=== PATIENT | female | born 1960 | race African-American/Black ===

== ENCOUNTER 2016-12-21 08:45 | Inpatient (IN) | payer OTHER ==
[2016-12-21 08:54] VITALS: BMI 34.4
--- NOTE | 2016-12-21 09:15 | PDOC ---
History of Present Illness <Shan Fontana - Last Filed: 12/21/16 10:33> - General History Source: Patient Exam Limitations: No Limitations - History of Present Illness Initial Comments: 12/21/16 10:46 The patient is a 56 year old female with a significant past medical history of HTN, who presents to the ER with left facial droop since 3AM. Patient states she was in her usual state of health when she fell asleep at midnight last night. The noticed that the patient had mumbled speech at 3AM last night when she sat up to cough. initially attributed the symptoms to tiredness. Patient fell back asleep and woke up at 6 AM without any notice of change in her speech. Patient reports feeling tired but denies difficulty ambulating or weakness in extremities. states he noticed patient with left facial droop at 8AM this morning. Patient arrived to the ER at 9AM. Patient states she did not take her daily medication this morning Denies face numbness or weakness in extremities Denies history of stroke Denies taking blood thinners PCP: Dr. Maynard <Luciana Roach - Last Filed: 12/21/16 11:52> - General Chief Complaint: CVA/TIA Stated Complaint: SLURRED SPEECH, FACIAL DROOPING Time Seen by Provider: 12/21/16 09:01 NIH Stroke Scale - Last Known Well Date/Time & Onset Date Last Known Well: 12/21/16 Time Last Known Well: 00:00 - Initial Evaluation Level of consciousness: Alert Ask patient the month and their age: Answers both correctly Ask patient to open & close eyes; make fist and let go: Obeys both correctly Best gaze (horizontal eye movement): Normal Visual field testing: No visual field loss Facial paresis (Show teeth/raise eyebrows/close eyes tight): Minor paralysis ( flattened nasolabial fold, asymmetry on smiling) Motor Function: Left Arm: Normal Motor Function: Right Arm: Normal (extends arm 90 (or 45) degrees for 10 seconds without drift Motor Function: Left Leg: Drift Motor Function: Right Leg: Normal (extends leg 30 degrees for 5 seconds without drift) Limb Ataxia: No ataxia Sensory(Use pinprick test arms,legs,trunk,face/side to side): Normal Best language (Describe picture, name items, read sentences): No Aphasia Dysarthria (read several words): Mild to moderate slurring of words Extinction and Inattention: No abnormality - Total Score NIH Stroke Scale Score: 3 <Shan Fontana - Last Filed: 12/21/16 10:33> tPA Exclusion checklist 3-4.5h - Thrombolytic Therapy Candidate Is patient eligible for thrombolytic therapy: No - Ineligibility reason(s) Reasons No tPA given: Outside of window - delayed arrival <Shan Fontana - Last Filed: 12/21/16 10:33> Past History - Past Medical History Anemia: Yes Asthma: No Cancer: No Cardiac Disorders: No CVA: No COPD: No CHF: No Dementia: No Diabetes: No GI Disorders: No Disorders: No HTN: Yes Hypercholesterolemia: No Liver Disease: No Seizures: No Thyroid Disease: No - Surgical History Abdominal Surgery: No Appendectomy: No Cardiac Surgery: No Cholecystectomy: Yes Lung Surgery: No Neurologic Surgery: No Orthopedic Surgery: No - Psycho/Social/Smoking Cessation Hx Anxiety: No Suicidal Ideation: No Smoking History: Never smoked Have you smoked in the past 12 months: No Information on smoking cessation initiated: No Hx Alcohol Use: No Drug/Substance Use Hx: No Substance Use Type: None Hx Substance Use Treatment: No <Shan Fontana - Last Filed: 12/21/16 10:33> <Luciana Roach - Last Filed: 12/21/16 11:52> - Past Medical History Allergies/Adverse Reactions: Allergies Allergy/AdvReac Type Severity Reaction Status Date / Time No Known Drug Allergies Allergy Verified 12/21/16 08:49 SEASONAL Allergy Uncoded 12/21/16 08:49 Home Medications: Ambulatory Orders Enalapril Maleate [Vasotec -] 20 mg PO DAILY 12/06/13 Metoprolol Succinate [Toprol Xl] 50 mg PO BID 12/21/16 Review of Systems - Review of Systems Constitutional: No: Chills, Fever HEENTM: No: Recent change in vision Respiratory: No: Cough, Shortness of Breath Cardiac (ROS): No: Chest Pain ABD/GI: No: Nausea, Vomiting Neurological: Yes: See HPI. No: Headache All Other Systems: Reviewed and Negative <Shan Fontana - Last Filed: 12/21/16 10:33> - Review of Systems Able to Perform ROS?: Yes Comments:: 12/21/16 10:57 CONSTITUTIONAL: Absent: fever, no chills, no fatigue EYES: Absent: visual changes ENT: Absent: ear pain, no sore throat CARDIOVASCULAR: Absent: chest pain, no palpitations RESPIRATORY: Absent: cough, no SOB GI: Absent: abdominal pain, no nausea, no vomiting, no constipation, no diarrhea GENITOURINARY: Absent: dysuria, no frequency, no hematuria MUSCULOSKELETAL: Absent: back pain, no arthralgia, no myalgia SKIN: Absent: rash NEURO: Present: Left facial droop Absent: headache <UtsLuciana - Last Filed: 12/21/16 11:52> *Physical Exam - Vital Signs Last Vital Signs Temp Pulse Resp BP Pulse Ox 98.5 F 65 18 173/100 97 12/21/16 08:49 12/21/16 08:49 12/21/16 08:49 12/21/16 08:49 12/21/16 08:49 <Shan Fontana - Last Filed: 12/21/16 10:33> - Vital Signs Last Vital Signs Temp Pulse Resp BP Pulse Ox 98.5 F 54 L 16 157/77 98 12/21/16 08:49 12/21/16 10:02 12/21/16 10:02 12/21/16 10:02 12/21/16 10:02 - Physical Exam Comments: 12/21/16 10:59 General: Patient is alert and in no acute distress. Speech is clear and appropriate. Head: Atraumatic and nontender. HEENT: Pupils are equal round and reactive to light, extraocular movements are intact. The tympanic membranes are clear, no hemotympanum. No facial deformity/ tenderness, no septal hematoma. The oropharynx is clear. Neck: The trachea is midline, there is no stridor. There is no midline cervical spine tenderness, full range of motion of neck. Chest: Nontender, no ecchymosis or abrasions. Heart: S1-S2, regular rate and rhythm. No murmurs. Lungs: Clear to auscultation bilaterally. Symmetric chest rise. Abdomen: Soft/nontender/nondistended. Bowel sounds are normal. There is no abdominal or flank ecchymosis. Back/Pelvis: There is no midline spine tenderness or step-off. Pelvis is stable and nontender. Extremities: There is no extremity deformity or joint swelling. No focal bony tenderness throughout. 2+ distal pulses throughout. Neuro: Left facial droop with sparing of the forehead. Alert and oriented x3. Cranial nerves II through XII are intact. 5 out of 5 motor strength x4 extremities. [id number] is intact. No pronator drift. Gait is stable. Skin: No abrasions/hematomas/lacerations. Psych: Affect is appropriate. <CleopatraaniyaLuciana - Last Filed: 12/21/16 11:52> Heart Score/ECG Review #1 ECG reviewed & interpreted by me at: 09:01 General ECG Interpretation: Sinus Rhythm, Normal Rate (56), Normal Intervals ( LVH, QTC 413), No acute ischemic changes <Shan Fontana - Last Filed: 12/21/16 10:33> ED Treatment Course - LABORATORY CBC & Chemistry Diagram: 12/21/16 09:19 12/21/16 09:19 - RADIOLOGY Radiology Studies Ordered: Category Date Time Status HEAD CT (STROKE) [CT] Stat CT Scan 12/21/16 09:10 Ordered CHEST X-RAY PORTABLE* [RAD] Stat Radiology 12/21/16 09:10 Ordered <Shan Fontana - Last Filed: 12/21/16 10:33> - LABORATORY CBC & Chemistry Diagram: 12/21/16 09:19 12/21/16 09:19 - ADDITIONAL ORDERS Additional order review: Laboratory Results 12/21/16 12/21/16 12/21/16 09:19 09:19 09:19 INR 1.12 Sodium 142 Potassium 3.8 Chloride 106 Carbon Dioxide 28 Anion Gap 8 BUN 11 Creatinine 1.1 H D Creat Clearance w eGFR 51.20 Random Glucose 122 H D Calcium 8.5 Total Bilirubin 0.5 AST 19 ALT 21 Alkaline Phosphatase 87 Creatine Kinase 269 H CK-MB (CK-2) 1.637 Troponin I < 0.02 Total Protein 7.0 Albumin 3.7 Triglycerides 77 Cholesterol 200 Total LDL Cholesterol 126 H HDL Cholesterol 64 H Blood Type O POSITIVE Antibody Screen Negative 12/21/16 09:19 RBC 4.60 MCV 85.8 MCHC 33.5 RDW 14.7 MPV 9.4 Neutrophils % 67.4 Lymphocytes % 24.7 Monocytes % 6.0 Eosinophils % 1.7 Basophils % 0.2 - RADIOLOGY Radiograph Interpretation: 12/21/16 11:[address] impression reported by Dr. Win Lewis: No evidence of acute intracranial hemorrhage, edema, midline shift, mass effect, or skull fracture. There is no CT evidence of acute territorial infarction <Luciana Roach - Last Filed: 12/21/16 11:52> Medical Decision Making - Critical Care Time Total Critical Care Time (minutes): 35 Critical Care Statement: The care of this patient involved high complexity decision making to prevent further life threatening deterioration of the patient 's condition and/or to evalute & treat vital organ system(s) failure or risk of failure. - Medical Decision Making 12/21/16 09:33 A portion of this note was documented by scribe services under my direction. I have reviewed the details of the note, within reason, and agree with the documentation with the following case summary and management plan written by me. 56-year-old female with history of hypertension and borderline high cholesterol presents brought in by this morning for left-sided facial weakness and slurred speech. Patient went to bed last night around midnight, which is the last known well time. Around 3 AM, patient awoke around 6 AM but did not notice any deficits or have any complaints, and at 8 AM the noticed that her left face was weak so they present for evaluation at 9 AM. No headache, no vision change, never noticed any arm or leg weakness or chest pain. Exam as noted, left facial droop but 5 out of 5 strength in the extremities, question subtle left leg drift. 56-year-old female with presentation most concerning for small ischemic stroke, last known well was about 9 hours prior to presentation. She is out of the window for acute intervention. Stroke protocol initiated Neurology consult Admission 12/21/16 10:29 labs are within normal limits, troponin negative, creatinine 1.1. CT shows no acute pathology. Will and gradually with aspirin, control blood pressure with her home meds of metoprolol/enalapril, neurology consulted. Will proceed with admission to stroke unit. 12/21/16 10:34 Accepted for inpatient stroke unit by Dr. Schwab. <Shan Fontana - Last Filed: 12/21/16 10:33> *DC/Admit/Observation/Transfer - Discharge Dispostion Admit: Yes <Shan Fontana - Last Filed: 12/21/16 10:33> - Attestations Scribe Attestion: 12/21/16 11:00 Documentation prepared by Luciana Roach, acting as medical translator for Shan Fontana MD. <Luciana Roach - Last Filed: 12/21/16 11:52> Diagnosis at time of Disposition: Cerebrovascular accident (CVA) Qualifiers: CVA mechanism: unspecified Qualified Code(s): I63.9 - Cerebral infarction, unspecified - Discharge Dispostion Condition at time of disposition: Fair - Referrals Referrals: Adam Maynard MD [Primary Care Provider] -
[2016-12-21 09:38] LABS: BASOPHIL 0.2 % (0-2.0); EOSINOPHIL 1.7 % (0-4.5); MCH 28.7 pg (25.7-33.7); MCHC 33.5 g/dl (32.0-36.0); MEAN CELL VOLUME 85.8 fl (80-96); MEAN PLT VOLUME 9.4 fl (7.5-11.1); NEUTROPHILS 67.4 % (42.8-82.8); PLATELET COUNT 172 K/MM3 (134-434); RDW 14.7 % (11.6-15.6); WHITE BLOOD COUNT 6.9 K/mm3 (4.0-10.0)
[2016-12-21] MEDS ORDERED: ASPIRIN 325 MG TABLET PO ONE (09:47)
[2016-12-21 10:00] LABS: ALBUMIN 3.7 g/dl (3.4-5.0); ANION GAP 8 (8-16); BILIRUBIN,TOTAL 0.5 mg/dL (0.2-1.0); CALCIUM 8.5 mg/dL (8.5-10.1); CHOLESTEROL 200 mg/dL (50-200); CO2 28 mmol/L (21-32); COCKROFT - GAULT 88.825; CREATININE 1.1 mg/dL (0.55-1.02); GLUCOSE,RANDOM 122 mg/dL (74-106); INR 1.12 (0.82-1.09); LDL CHOLESTEROL (ONLY SJRH) 126 mg/dL (5-100); PROTHROMBIN TIME (PATIENT) 12.3 SEC (9.98-11.88); SGOT/AST 19 U/L (15-37); SGPT/ALT 21 U/L (12-78)
[2016-12-21 10:01] LABS: ALK PHOS 87 U/L (45-117); TROPONIN I < 0.02 ng/ml (0.00-0.05)
[2016-12-21] MEDS ORDERED: ENALAPRIL MALEATE 10 MG TABLET (FP) PO ONE (10:28)
[2016-12-21] MEDS ORDERED: METOPROLOL SUCCINATE 50 MG TAB.SR.24H (FP) PO ONE (10:28)
[2016-12-21] MEDS ORDERED: ASPIRIN 325 MG TABLET ONE (11:13)
[2016-12-21] MEDS ORDERED: METOPROLOL SUCCINATE 50 MG TAB.SR.24H (FP) ONE (11:13)
[2016-12-21] MEDS ORDERED: ENALAPRIL MALEATE 5 MG TABLET (FP) ONE (11:13)
--- NOTE | 2016-12-21 13:29 | EKG ---
Test Reason : Blood Pressure : / mmHG Vent. Rate : 056 BPM Atrial Rate : 056 BPM P-R Int : 156 ms QRS Dur : 074 ms QT Int : 428 ms P-R-T Axes : 050 -01 026 degrees QTc Int : 413 ms SINUS BRADYCARDIA VOLTAGE CRITERIA FOR LEFT VENTRICULAR HYPERTROPHY ABNORMAL ECG WHEN COMPARED WITH ECG OF 05-DEC-2013 18:22, NO SIGNIFICANT CHANGE WAS FOUND Confirmed by NÉSTOR FUNES MD ([id number]) on 12/21/2016 1:28:42 PM Referred By: Confirmed By:NÉSTOR FUNES MD
--- NOTE | 2016-12-21 14:50 | CON.CARD ---
Consult Consult Specialty:: Cardiology Referred by:: Adam Maynard MD Reason for Consultation:: Stroke - History of Present Illness Chief Complaint: Left facial droop History of Present Illness: The patient is a 56 year old female with a significant past medical history of HTN, who presents to the ER with left facial droop and dysarthia at 3AM since improving. Patient denies numbness, weakness, headache, near or true syncope, palpitations, orthopnea, PND, LE edema or change in exercise capacity. PCP: Dr. Maynard - History Source History Provided By: Patient, Family Member Limitations to Obtaining History: No Limitations - Past Medical History Cardio/Vascular: Yes: HTN - Alcohol/Substance Use Hx Alcohol Use: No - Smoking History Smoking history: Never smoked Have you smoked in the past 12 months: No Home Medications - Allergies Allergies/Adverse Reactions: Allergies Allergy/AdvReac Type Severity Reaction Status Date / Time No Known Drug Allergies Allergy Verified 12/21/16 08:49 SEASONAL Allergy Uncoded 12/21/16 08:49 - Home Medications Home Medications: Ambulatory Orders Enalapril Maleate [Vasotec -] 20 mg PO DAILY 12/06/13 Metoprolol Succinate [Toprol Xl] 50 mg PO BID 12/21/16 Review of Systems - Review of Systems Neurological: reports: Change in Speech Vital Signs: Vital Signs Temperature 98.3 F 12/21/16 11:20 Pulse Rate 56 L 12/21/16 13:31 Respiratory Rate 16 12/21/16 13:31 Blood Pressure 146/91 12/21/16 13:31 O2 Sat by Pulse Oximetry (%) 98 12/21/16 13:31 Constitutional: Yes: No Distress, Calm Neck: Yes: Supple Respiratory: Yes: Regular, CTA Bilaterally Gastrointestinal: Yes: Normal Bowel Sounds, Soft, Abdomen, Obese Cardiovascular: Yes: Regular Rate and Rhythm JVD: No Carotid Bruit: No Heart Sounds: Yes: S1, S2 Murmur: Yes: Systolic Murmur, Grade 1 Edema: No - Other Data Labs, Other Data: INR, PTT INR 1.12 (0.82-1.09) 12/21/16 09:19 SB @ 56 LVH Imaging - Results Chest X-ray: Report Reviewed (NAD) Cat Scan: Report Reviewed ( 12/21/16 11:[address] impression reported by Dr. Win Lewis: No evidence of acute intracranial hemorrhage, edema, midline shift, mass effect, or skull fracture. There is no CT evidence of acute territorial infarction <Uts,Luciana - Last Filed: 12/21/16 11:52>) Problem List - Problems (1) Cerebrovascular accident (CVA) Code(s): I63.9 - CEREBRAL INFARCTION, UNSPECIFIED Qualifiers: CVA mechanism: unspecified Qualified Code(s): I63.9 - Cerebral infarction, unspecified (2) Hyperlipidemia LDL goal <100 Code(s): E78.5 - HYPERLIPIDEMIA, UNSPECIFIED (3) Hypertensive cardiomyopathy Code(s): I11.9 - HYPERTENSIVE HEART DISEASE WITHOUT HEART FAILURE I42.9 - CARDIOMYOPATHY, UNSPECIFIED Qualifiers: Heart failure presence: without heart failure Qualified Code(s): I11.9 - Hypertensive heart disease without heart failure; I43 - Cardiomyopathy in diseases classified elsewhere Assessment/Plan 1. Acute stroke 2. HTN/HCVD 3. Hyperlipidemia P:1. Brain MRI, carotid dopplers, tele r/o PAF, echo, check TSH 2. ASA 81 qd, continue vasotec 20 qd, Toprol XL 50 bid 3. Speech therapy, neuro input pending 4. Thank you for consultative opportunity
[2016-12-21 17:51] LABS: URINE APPEARANCE CLEAR; URINE BILIRUBIN NEGATIVE (NEGATIVE); URINE COLOR STRAW; URINE GLUCOSE (UA) NEGATIVE (NEGATIVE); URINE KETONE NEGATIVE (NEGATIVE); URINE LEUK ESTERASE NEGATIVE (NEGATIVE); URINE NITRITE NEGATIVE (NEGATIVE); URINE PROTEIN NEGATIVE (NEGATIVE); URINE UROBILINOGEN NEGATIVE E.U./dl (0.2-1.0)
[2016-12-21 17:59] LABS: URINE BLOOD 1+ (NEGATIVE)
--- NOTE | 2016-12-21 20:52 | HP ---
DATE OF ADMISSION: DATE OF DICTATION: 12/21/2016 HISTORY OF PRESENT ILLNESS: This is a 56-year-old female with past medical history of hypertension, brought to emergency room with complaints of left facial droop and dysarthria. As per her friend, the patient was sleeping and at 3 a.m. noticed some mumbled speech and eventually gets up to call when she woke up at 6 a.m., noticed slight weakness, and also noted the left facial droop at 8 a.m., and the dysarthria was persistent, so patient brought to the emergency room for evaluation. No history of chest pain, no headache, no syncope, no palpitation, no difficulty in swallowing. PAST MEDICAL HISTORY: As mentioned before, hypertension. MEDICATION: Patient is on enalapril 20 mg p.o. daily, metoprolol XL 50 mg p.o. b.i.d., aspirin 81 mg p.o. daily. ALLERGIES: No known drug allergies. PERSONAL HISTORY: Patient lives with the family. REVIEW OF SYSTEMS: General: Patient alert, oriented x3. Respiratory: Nothing significant. Cardiovascular: History of hypertension. Gastrointestinal: Nothing significant. Musculoskeletal: No joint pain. No swelling. Neurology: Alert and oriented x3. Left facial droop present. No numbness. Nasal labial fold is flattened. Asymmetry on smiling present. No pattern sensory complaints. PHYSICAL EXAMINATION: Vital signs: On examination at time of ER visit, temperature was 98.5, pulse rate 65, respirations 18, blood pressure 173/100, saturation 97%. Head/Neck: Left facial droop present,. Deviation of the tongue present. No sensory deficit on the face. The neck: No JVD. Chest: Clear, equal bilaterally. Cardiovascular: First and second sound normal. Abdomen: Soft. No tenderness. No distention. Bowel sounds present. Extremity: No edema. Central Nervous System: Alert and oriented x3. Left facial droop present. Cranial nerve 2-12 normal. No apparent motor or sensory deficit on the upper or lower extremity. No gait disturbance. No sensory deficit. LABORATORY: CBC normal. CMP normal. Chest x-ray, no acute infiltrate. EKG normal sinus rhythm, sinus bradycardia 56 per minute, no intracranial hemorrhage, no midline shift, no skull fracture. Cardiac enzymes x1 every day. Total cholesterol 200 , LDL 126, HDL 64, triglycerides 77. IMPRESSION: Patient admitted on the floor with admitting diagnosis cerebrovascular accident, hypertension, hyperlipidemia, left facial droop, slurred speech. PLAN: Cardiology consultation. Neurology consult. Blood pressure medication losartan 20 mg p.o. daily, metoprolol succinate XL 50 mg p.o. b.i.d., aspirin 81 mg p.o. daily. PT evaluation. Monitor vital signs. Will follow the recommendation of neurology. Patient stable. Rene [id number] MTDD
--- NOTE | 2016-12-21 21:35 | CONSULT ---
Consult - text type - Consultation Consultation Note: NEUROLOGY CONSULTATION is greatly appreciated: This 56 yo RH woman with 2 adult children has h/o HTN on enalapril (20 mg) and metoprolol (50 BID). At 3 AM awoke with slurred speech attributed to being tired and went back to sleep. Was normal at midnight. At 6 AM noted left facial drooping. Patient notes Left hand weakness. Denies paresthesiae or change in gait. CT of head (reviewed): Normal PAUL: BP's still 150-160/80-90 range. No bruits. Cor reg. NEURO: MS: normal Speech; Mildly dysarthric. CN: Left central facial weakness. Decreased tongue BHAVANI's. Full walton and EOM's. Gag: OK Motor: Left drift. Left grasp 4/5. Markedly decreased Left hand BHAVANI' s. Mild Left toe ext (4+/5) Normal (symmetrically depressed) reflexes. Toes downgoing. Coord: Slow on left but no dystaxia. Sensory: Normal Gait: sl decreased Left arm swing. 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 SUGGEST: Admit for BP control (110-120/70-80 range). Plavix 75 mg PO qd MRI of brain (C-). Telemetry, cardiology consultation. Thank you very much, Francesco Chavez MD
[2016-12-21] MEDS: METOPROLOL SUCCINATE 50 MG TAB.SR.24H (FP) PO SCH (22:35)
[2016-12-21] MEDS: ROSUVASTATIN CA 10 MG TABLET (FP) PO SCH (22:36)
[2016-12-22 07:07] LABS: BASOPHIL 0.2 % (0-2.0); EOSINOPHIL 1.3 % (0-4.5); MCH 28.7 pg (25.7-33.7); MCHC 33.4 g/dl (32.0-36.0); MEAN CELL VOLUME 85.8 fl (80-96); MEAN PLT VOLUME 9.9 fl (7.5-11.1); NEUTROPHILS 69.5 % (42.8-82.8); PLATELET COUNT 180 K/MM3 (134-434); RDW 14.3 % (11.6-15.6); WHITE BLOOD COUNT 8.6 K/mm3 (4.0-10.0)
[2016-12-22 07:43] LABS: ALBUMIN 3.6 g/dl (3.4-5.0); BILIRUBIN,TOTAL 0.6 mg/dL (0.2-1.0); CALCIUM 8.4 mg/dL (8.5-10.1); COCKROFT - GAULT 97.512; TOT PROT 6.6 g/dl (6.4-8.2)
[2016-12-22 07:52] LABS: THYROID STIMULATING HORMONE 1.98 uIU/ml (0.358-3.74)
--- NOTE | 2016-12-22 09:23 | PN ---
Progress Note, Physician Chief Complaint: Pt lying in bed,Facial droop present Weakness of lt hnd present Dysarthria improvedc cardiology and neurology consult appreciated Awaiting MRI of brain Speech and swallow evaluation,PT consult ordered Plavix started - Current Medication List Current Medications: Active Medications Aspirin (Asa -) 81 mg PO DAILY [facility] Clopidogrel Bisulfate (Plavix -) 75 mg PO DAILY [facility] Enalapril Maleate (Vasotec -) 20 mg PO DAILY [facility] Metoprolol Succinate (Toprol Xl -) 50 mg PO BID [facility] Last Admin: 12/21/16 22:35 Dose: 50 mg Rosuvastatin Calcium (Crestor -) 10 mg PO HS [facility] Last Admin: 12/21/16 22:36 Dose: 10 mg - Objective Vital Signs: Vital Signs Temperature 97.7 F 12/22/16 05:57 Pulse Rate 59 L 12/22/16 05:57 Respiratory Rate 20 12/22/16 05:57 Blood Pressure 165/77 12/22/16 05:57 O2 Sat by Pulse Oximetry (%) 99 12/22/16 00:00 Constitutional: Yes: No Distress Eyes: Yes: Conjunctiva Clear HENT: Yes: Atraumatic, Other (Lt facial droop present) Neck: Yes: Supple Cardiovascular: Yes: Regular Rate and Rhythm Respiratory: Yes: Regular, CTA Bilaterally Gastrointestinal: Yes: Normal Bowel Sounds Edema: No Peripheral Pulses WNL: Yes Integumentary: Yes: WNL Neurological: Yes: Alert, Oriented, Facial Droop, Other ([employer] weak on lt hand) Psychiatric: Yes: Alert, Oriented Labs: CBC, BMP 12/22/16 06:10 12/22/16 06:10 INR, PTT INR 1.12 (0.82-1.09) 12/21/16 09:19 - ....Imaging Chest X-ray: Report Reviewed Cat Scan: Report Reviewed EKG: Report Reviewed Assessment/Plan CVA,Lacunar syndrome Dysarthria,Clumsy hand syndrome LT HTN Hypercholestrolemia PLAN MRI of brain awaiting Continue BP medications PT Speech and swollow evalution will f/u neurology rec Monitor BP
[2016-12-22] MEDS: CLOPIDOGREL BISULFATE 75 MG TABLET (FP) PO SCH (09:41)
[2016-12-22] MEDS: ASPIRIN 81 MG CHEWABLE TABLETS PO SCH (09:41)
[2016-12-22] MEDS: METOPROLOL SUCCINATE 50 MG TAB.SR.24H (FP) PO SCH ×2 (09:41→21:23)
[2016-12-22] MEDS: ENALAPRIL MALEATE 10 MG TABLET (FP) PO SCH (09:41)
--- NOTE | 2016-12-22 09:58 | PN ---
Progress Note, Physician Chief Complaint: Events noted Not in distress History of Present Illness: Patient was seen and examined. Awake and alert. Chart was reviewed Denies chest pain, SOB or palpitations - Current Medication List Current Medications: Active Medications Aspirin (Asa -) 81 mg PO DAILY [facility] Last Admin: 12/22/16 09:41 Dose: 81 mg Clopidogrel Bisulfate (Plavix -) 75 mg PO DAILY [facility] Last Admin: 12/22/16 09:41 Dose: 75 mg Enalapril Maleate (Vasotec -) 20 mg PO DAILY [facility] Last Admin: 12/22/16 09:41 Dose: 20 mg Metoprolol Succinate (Toprol Xl -) 50 mg PO BID [facility] Last Admin: 12/22/16 09:41 Dose: 50 mg Rosuvastatin Calcium (Crestor -) 10 mg PO HS [facility] Last Admin: 12/21/16 22:36 Dose: 10 mg - Objective Vital Signs: Vital Signs Temperature 98.5 F 12/22/16 09:51 Pulse Rate 55 L 12/22/16 09:51 Respiratory Rate 20 12/22/16 09:51 Blood Pressure 165/77 12/22/16 05:57 O2 Sat by Pulse Oximetry (%) 99 12/22/16 00:00 HENT: Yes: Atraumatic Neck: Yes: Supple Cardiovascular: Yes: Regular Rate and Rhythm, S1, S2 Respiratory: Yes: CTA Bilaterally Gastrointestinal: Yes: Normal Bowel Sounds, Soft. No: Tenderness Edema: No Additional Findings/Remarks: Review of Systems Cardiovascular: As noted above Respiratory: denies: denies: Cough or Sputum Production Gastrointestinal: denies: Nausea, Vomiting, Diarrhea, Constipation or Abdominal Discomfort Musculoskeletal: No Symptoms Reported Endocrine: No Symptoms Reported Labs: CBC, BMP 12/22/16 06:10 12/22/16 06:10 INR, PTT INR 1.12 (0.82-1.09) 12/21/16 09:19 Problem List - Problems (1) Cerebrovascular accident (CVA) Code(s): I63.9 - CEREBRAL INFARCTION, UNSPECIFIED Qualifiers: CVA mechanism: unspecified Qualified Code(s): I63.9 - Cerebral infarction, unspecified (2) Hyperlipidemia LDL goal <100 Code(s): E78.5 - HYPERLIPIDEMIA, UNSPECIFIED (3) Hypertensive cardiomyopathy Code(s): I11.9 - HYPERTENSIVE HEART DISEASE WITHOUT HEART FAILURE I42.9 - CARDIOMYOPATHY, UNSPECIFIED Qualifiers: Heart failure presence: without heart failure Qualified Code(s): I11.9 - Hypertensive heart disease without heart failure; I43 - Cardiomyopathy in diseases classified elsewhere Assessment/Plan 1. Acute stroke 2. HTN/HCVD 3. Hyperlipidemia PLAN: 1. Brain MRI, carotid Doppler and transthoracic echocardiography 2. ASA 81 mg qd, Vasotec 20 mg qd and Toprol XL 50 mg bid 3. Speech therapy, neuro input pending and eventually rehab Further plans are to follow Bharahti Shen MD
--- NOTE | 2016-12-22 10:55 | CONSULT ---
Admitting History and Physical - Primary Care Physician PCP: Adma Maynard - Admission History of Present Illness: 56-year-old female with history of hypertension and borderline high cholesterol presents brought in by this morning for left-sided facial weakness and slurred speech. 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 Pending MRI On reg diet/thin liquid. - Past Medical History Cardiovascular: Yes: HTN ...: No - Smoking History Smoking history: Never smoked Have you smoked in the past 12 months: No - Alcohol/Substance Use Hx Alcohol Use: No History - Admission Reason For Visit: CVA - Hearing Hearing: Normal Hearing Aide: No With Patient: No Speech Evaluation - Communication Primary Language: [id number]
--- NOTE | 2016-12-22 12:28 | CONSULT ---
Admitting History and Physical - Primary Care Physician PCP: Adam Maynard - Admission History of Present Illness: Admission History of Present Illness: 56-year-old female with history of hypertension and borderline high cholesterol presents brought in by this morning for left-sided facial weakness and slurred speech. 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 MRI- Acute right IC infarct On reg diet/thin liquid Selected Entries 12/21/16 12/21/16 12/21/16 08:49 11:20 18:35 Breakfast Temperature 98.5 F 98.3 F 98 F 12/21/16 12/22/16 12/22/16 22:00 00:05 02:17 Breakfast Temperature 98.8 F 98.5 F 97.7 F 12/22/16 12/22/16 12/22/16 05:57 09:51 10:59 Breakfast 75% Temperature 97.7 F 98.5 F History Source: Patient, Family Member, Medical Record Limitations to Obtaining History: No Limitations - Past Medical History Cardiovascular: Yes: HTN ...: No - Smoking History Smoking history: Never smoked Have you smoked in the past 12 months: No - Alcohol/Substance Use Hx Alcohol Use: No History - Admission Reason For Visit: CVA - Diagnostics X-ray: Report Reviewed CT Scan: Report Reviewed MRI: Report Reviewed - General Mental Status: Alert and Oriented, Awake and Alert, Able to Follow Commands Attention: Intact Ability to Follow Directions: Excellent Head/Neck Control: WFL - Hearing Hearing: Normal Hearing Aide: No With Patient: No Speech Evaluation - Communication Primary Language: [place] Communication: Yes: Dysarthria Oral Expression Ability: Yes: Mild Impairment - Speech Production Dysarthria: Yes: Flaccid Able to Make Needs Known: Yes: WNL Intelligibility: Yes: Mildly Impaired - Speech Characteristics Voice Loudness: Mildly Soft/Quiet Voice Pitch: Yes: Normal Voice Phonatory-based Quality: Yes: Normal Nasal Resonance: Normal Articulation: Yes: Imprecise Rate of Speech: Intact - Language/Auditory Comprehension Follows: Yes: 2 Stage Simple Commands - Language/Verbal Expression Able to Respond to Simple Queries: Yes: WNL Able to Communicate Wants and Needs: Yes: WNL Functional Communication Status: Yes: WNL - Memory/Perception penitentiary Memory: Yes: WNL Short Term Memory: Yes: WNL - Swallow Evaluation/Bedside Assessment Current Nutritional Intake: Regular, Thin Liquids Oral Secretions: Yes: WFL Dentition: Yes: Adequate Facial Symmetry at Rest: Facial Droop Left (mild to mod) Facial Symmetry on Retraction: Facial Droop Left (slight) Pucker Lips: Droops Left Smile: Droops Left Laryngeal Movement: Able to Palpate, Labored,delay initiation Rate of Intake: WFL Labial Seal: WFL Oral Prep Time: WFL A-P Transit: WFL Coughing/Throat Clear: Yes (thin liquid) Recommendations - Speech Evaluation, Impression/Plan Impression: Cough response with thin liquid via straw. Pt reported coughing a couple of times during breakfast. Left facial weakness. Dysmetria with left hand continues, needing to slow rate and use carefully for accuracy. Suspect intermittent aspiration, likely secondary to oral/pharyngeal dyscoordination. Good prognosis for improvement. - Disposition Discharge to: [facility] - Dysphagia Impressions/Plan Swallowing Skills: Impaired Dysphagia Impressions: Suspect Aspiration *Silent aspiration: cannot be R/O at bedside Recommendations: Modified Barium Swallow
[2016-12-22 15:08] LABS: URINE MUCUS RARE; URINE RBC <1 /hpf (0-3); URINE WBC <1 (3-5)
[2016-12-22] MEDS: ROSUVASTATIN CA 10 MG TABLET (FP) PO SCH (21:23)
--- NOTE | 2016-12-23 09:05 | PN ---
Progress Note, Physician Chief Complaint: Pt lying in bed,Facial droop present Weakness of lt hnd present Dysarthria improved cardiology and neurology consult appreciated MRI of brain report shows nonhemmorhagic infarct on posterior limb of rt internal capsule Speech and swallow evaluation, and barium swollow evaluation reprt noted, impression was high risk or aspiration due to oral pharyngeal discoordination and rec noted Bp is under control - Current Medication List Current Medications: Active Medications Aspirin (Asa -) 81 mg PO DAILY [facility] Last Admin: 12/22/16 09:41 Dose: 81 mg Clopidogrel Bisulfate (Plavix -) 75 mg PO DAILY [facility] Last Admin: 12/22/16 09:41 Dose: 75 mg Enalapril Maleate (Vasotec -) 20 mg PO DAILY [facility] Last Admin: 12/22/16 09:41 Dose: 20 mg Metoprolol Succinate (Toprol Xl -) 50 mg PO BID [facility] Last Admin: 12/22/16 21:23 Dose: 50 mg Rosuvastatin Calcium (Crestor -) 10 mg PO HS [facility] Last Admin: 12/22/16 21:23 Dose: 10 mg - Objective Vital Signs: Vital Signs Temperature 98.6 F 12/23/16 06:00 Pulse Rate 56 L 12/23/16 06:00 Respiratory Rate 18 12/23/16 06:00 Blood Pressure 132/87 12/23/16 06:00 O2 Sat by Pulse Oximetry (%) 98 12/22/16 21:00 Constitutional: Yes: No Distress Eyes: Yes: Conjunctiva Clear HENT: Yes: Other (Lt facial droop) Neck: Yes: Supple Cardiovascular: Yes: Regular Rate and Rhythm Respiratory: Yes: Regular, CTA Bilaterally Gastrointestinal: Yes: Normal Bowel Sounds, Soft Extremities: Yes: WNL Edema: No Peripheral Pulses WNL: Yes Neurological: Yes: Alert, Oriented, Dysarthria, Facial Droop, 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
[2016-12-23] MEDS: ENALAPRIL MALEATE 10 MG TABLET (FP) PO SCH (10:34)
[2016-12-23] MEDS: ASPIRIN 81 MG CHEWABLE TABLETS PO SCH (10:35)
[2016-12-23] MEDS: METOPROLOL SUCCINATE 50 MG TAB.SR.24H (FP) PO SCH ×2 (10:35→22:12)
[2016-12-23] MEDS: CLOPIDOGREL BISULFATE 75 MG TABLET (FP) PO SCH (10:35)
--- NOTE | 2016-12-23 10:36 | PN ---
Progress Note (short form) - Note Progress Note: S: 56 year old female, admitted with cerebellar vascular accident, history of hypertension, hypertensive cardiovascular disease, hyperlipidemia. Patient denies having shortness of breath, chest pain or discomfort, palpitations, lightheadedness or dizziness. 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 Active Medications Generic Name Dose Route Start Last Admin Trade Name Graysonq PRN Reason Stop Dose Admin Aspirin 81 mg 12/22/16 10:00 12/22/16 09:41 Asa - PO 81 mg DAILY JOSE Administration Clopidogrel Bisulfate 75 mg 12/22/16 10:00 12/22/16 09:41 Plavix - PO 75 mg DAILY JOSE Administration Enalapril Maleate 20 mg 12/22/16 10:00 12/22/16 09:41 Vasotec - PO 20 mg DAILY JOSE Administration Metoprolol Succinate 50 mg 12/21/16 22:00 12/22/16 21:23 Toprol Xl - PO 50 mg BID JOSE Administration Rosuvastatin Calcium 10 mg 12/21/16 22:00 12/22/16 21:23 Crestor - PO 10 mg HS JOSE Administration O: 56 year old female was in no acute distress, no pallor, cyanosis, clubbing, or jaundice. Last Vital Signs Temp Pulse Resp BP Pulse Ox 98.6 F 56 L 18 132/87 98 12/23/16 06:00 12/23/16 06:00 12/23/16 06:00 12/23/16 06:00 12/22/16 21:00 Neck: Supple, no JVD, negative HJR, carotids were equal and upstrokes were normal, no thyromegaly appreciated. Heart: PMI was in the 5th intercostal space, no heaves or thrills, S1 and S2 were normal. No murmurs or gallops were appreciated. Lungs: Clear on auscultation bilaterally. Abdomen: Soft, nontender, no hepatosplenomegaly appreciated, and no palpable masses were felt. Extremities: No calf tenderness or dependent edema. Pulses are normal. CBC, BMP 12/22/16 06:10 12/22/16 06:10 Laboratory Results - last 24 hr 12/21/16 12/22/16 12/22/16 17:44 06:10 06:10 Vitamin B12 385 Cancelled Urine RBC <1 Urine WBC <1 Ur Epithelial Cells Rare Urine Mucus Rare Impression: (1) Cerebrovascular accident (CVA) with left hemiparhesis Code(s): I63.9 - CEREBRAL INFARCTION, UNSPECIFIED Qualifiers: CVA mechanism: unspecified Qualified Code(s): I63.9 - Cerebral infarction, unspecified (2) Hypertension, hypertensive cardiovascular disease Code(s): I11.9 - HYPERTENSIVE HEART DISEASE WITHOUT HEART FAILURE I42.9 - CARDIOMYOPATHY, UNSPECIFIED Qualifiers: Heart failure presence: without heart failure Qualified Code(s): I11.9 - Hypertensive heart disease without heart failure; I43 - Cardiomyopathy in diseases classified elsewhere (3) Hypercholesterolemia Recommendations: 1. Please note vitamin B12 is below 400 and may reflect B12 deficiency. 2. Concur with current line of anti hypertensive therapy. 3. Patient will require counseling regarding dietary restrictions including salt restrictions, weight reductions. Attestation: Documentation prepared by Gilberto Banda, acting as medical imaging specialist for Curt Agarwal MD.
--- NOTE | 2016-12-23 11:05 | PN ---
Progress Note, [employer] - Note Progress Note: Occasional cough while drinking reported. Selected Entries 12/22/16 12/22/16 12/22/16 00:05 02:17 05:57 Breakfast Lunch Supper Temperature 98.5 F 97.7 F 97.7 F 12/22/16 12/22/16 12/22/16 09:51 10:59 14:20 Breakfast 75% Lunch 75% Supper Temperature 98.5 F 98.4 F 12/22/16 12/22/16 12/23/16 18:00 21:22 02:00 Breakfast Lunch Supper 100% Temperature 99.2 F 99.2 F 98.6 F 12/23/16 12/23/16 06:00 10:29 Breakfast 100% Lunch Supper Temperature 98.6 F Laboratory Tests 12/22/16 06:10 WBC 8.6 Reviewed rec based on MBS results with pt and staff including: Fully upright with meals, ideally OOB Chin tuck Holding bolus in her mouth before transfer/swallow Single,careful sips
--- NOTE | 2016-12-23 19:21 | CONS ---
DATE OF CONSULTATION: 12/23/2016 PHYSICAL MEDICINE REHABILITATION CONSULTATION REFERRING PHYSICIAN: Francesco Chavez M.D. HISTORY OF PRESENT ILLNESS: The patient is a 56-year-old woman with past medical history of hypertension who was admitted with slurred speech on December 21, 2016. Patient underwent evaluation including a CT of the head which showed no acute intracranial pathology. Patient underwent an MRI of the brain which showed acute posterior limb right internal capsule infarct, modified barium swallow was negative. Carotid ultrasound was normal. Blood work on admission showed normal CBC, WBC 6.9, hematocrit 13.2, platelet count 172. Chemistry showed sodium 142, potassium 3.8 , chloride 106, CO2 of 28, BUN 11, creatinine 1.1. LDL was elevated at 126, HDL also elevated at 64. Repeat blood work was stable. TSH normal 1.98, and B12 was normal at 385. Patient was seen by physical therapy and able to ambulate 60 feet without assistive device at a supervision level. Patient herself feels fairly steady on her feet and does note some weakness in her left hand but her speech she feels is improving. She has no cough with swallow, no numbness, tingling, no joint arthralgias. PAST MEDICAL HISTORY: Review of past medical and surgical history as above. Hypertension. SOCIAL HISTORY: Lives in an apartment with an elevator for access. Premorbidly completely independent, ambulatory without assistive device, independent with ADLs. Current function as above. REVIEW OF SYSTEMS: No headache, no lightheadedness, dizziness. No blurry vision, double vision. No visual field cut. No change in vision. No nausea, vomiting, difficulty swallowing, difficulty chewing. No cough with swallow. No chest pain, shortness of breath, fevers, chills. No bowel/bladder incontinence, retention. No diarrhea. Loose stool or bowel incontinence. She has some weakness and dis-coordination of the left hand but no numbness, tingling. No other isolated weakness. No joint arthralgias. No neck or back pain. PHYSICAL EXAMINATION: General: Patient is slightly overweight woman seen lying in bed. She is awake and cooperative in no acute distress. HEENT: Normocephalic, atraumatic. Extraocular muscles appear intact. She may have some mild left facial weakness. Mild slurred speech but her speech is fluent, no word finding deficits. Neck: Supple. Extremities: Without any pitting edema or calf tenderness. Neuromuscular: She is awake, alert, oriented x3. Cranial nerves, perhaps some mild left central 7th nerve involvement, otherwise 2-12 grossly intact. She has mild weakness in the left upper limb distally more than proximally but normal sensation, good strength 5/5 in the right upper extremity, bilateral lower extremities. No osteoarthritic changes. Normal symmetric reflexes. Toes equivocal. OVERALL IMPRESSION: 1. Deficits in mobility and activities of daily living which are mild. 2. Acute posterior limb right internal carotid artery infarct with some dysarthria and left upper extremity weakness, left facial weakness. 3. Hypertension. 4. Hyperlipidemia. 5. Overweight. PLANS AND SUGGESTIONS: 1. Continue physical therapy while in the hospital. 2. Out of bed to chair. 3. SCDs for DVT prophylaxis. 4. Medication per neurology. 5. Cholesterol lowering medication. 6. Skin precaution. 7. Home with home care or outpatient occupaional therapy and speech therapy once medically stable . Thank you for this referral. JESSICA REN M.D. [id number] MTDD
--- NOTE | 2016-12-23 21:42 | PN ---
Progress Note (short form) - Note Progress Note: NEUROLOGY FOLLOW-UP: Events and MRI images reviewed. Patient examined. She denies difficulty swallowing. Thinks hand is moving better but told her job "she would not be back for a while." MRI of brain (reviewed): Lacunar infarction in the Right internal capsule Carotid duplex doppler- normal Still on telemetry. BP's still elevated: 130-150/80-100 range On vasotec 20 mg and metoprolol 50 BID. On plavix 75 mg/day. EXAM: Left central facial. Sl reduced tongue BHAVANI's Left drift. Left grasp 3/5 Normal reflexes. Toes downgoing. Normal sensory. Normal gait. IMP: Stable deficit after Right internal capsule lacunar infarction. Entirely due to chronic hypertension. Embolic source is extremely unlikely. SUGGEST: Increase BP meds and add diuresis. BP should be in the 100-120/70-80 range. Continue plavix 75 mg Stable for D/C. 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 Thank you very much, Francesco Chavez MD
[2016-12-23] MEDS: ROSUVASTATIN CA 10 MG TABLET (FP) PO SCH (22:12)
[2016-12-23] MEDS ORDERED: ACETAMINOPHEN 325 MG TABLET (FP) PO PRN (22:30)
[2016-12-24 05:59] VITALS: BP 152/56; PULSE 56; TEMP 98.3
[2016-12-24 06:49] LABS: BASOPHIL 0.5 % (0-2.0); EOSINOPHIL 2.1 % (0-4.5); MCH 28.8 pg (25.7-33.7); MCHC 33.8 g/dl (32.0-36.0); MEAN CELL VOLUME 85.2 fl (80-96); MEAN PLT VOLUME 9.5 fl (7.5-11.1); NEUTROPHILS 65.1 % (42.8-82.8); PLATELET COUNT 181 K/MM3 (134-434); RDW 14.8 % (11.6-15.6); WHITE BLOOD COUNT 7.9 K/mm3 (4.0-10.0)
[2016-12-24 07:06] LABS: ALBUMIN 3.3 g/dl (3.4-5.0); BILIRUBIN,TOTAL 0.4 mg/dL (0.2-1.0); CALCIUM 8.6 mg/dL (8.5-10.1); COCKROFT - GAULT 97.597; TOT PROT 6.3 g/dl (6.4-8.2)
--- NOTE | 2016-12-24 09:23 | PN ---
Progress Note, Physician Chief Complaint: Pt lying in bed,Facial droop present Weakness of lt hand present,but improving Dysarthria improved cardiology and neurology consult appreciated MRI of brain report shows nonhemmorhagic infarct on posterior limb of rt internal capsule Speech and swallow evaluation, and barium swollow evaluation reprt noted, impression was high risk or aspiration due to oral pharyngeal discoordination and rec noted Bp is under control Neurology cleared for discharge and rec outpatient PT Vns consult D/c planing - Current Medication List Current Medications: Active Medications Acetaminophen (Tylenol -) 650 mg PO Q6H PRN PRN Reason: FEVER OR PAIN Aspirin (Asa -) 81 mg PO DAILY [facility] Last Admin: 12/23/16 10:35 Dose: 81 mg Clopidogrel Bisulfate (Plavix -) 75 mg PO DAILY [facility] Last Admin: 12/23/16 10:35 Dose: 75 mg Enalapril Maleate (Vasotec -) 20 mg PO DAILY [facility] Last Admin: 12/23/16 10:34 Dose: 20 mg Metoprolol Succinate (Toprol Xl -) 50 mg PO BID [facility] Last Admin: 12/23/16 22:12 Dose: 50 mg Rosuvastatin Calcium (Crestor -) 10 mg PO HS [facility] Last Admin: 12/23/16 22:12 Dose: 10 mg - Objective Vital Signs: Vital Signs Temperature 98.3 F 12/24/16 05:58 Pulse Rate 56 L 12/24/16 05:58 Respiratory Rate 18 12/24/16 05:58 Blood Pressure 152/56 12/24/16 05:58 O2 Sat by Pulse Oximetry (%) 98 12/23/16 21:00 Constitutional: Yes: No Distress Eyes: Yes: Conjunctiva Clear HENT: Yes: Atraumatic, Normocephalic, Other (Lt facial droop) Neck: Yes: WNL Cardiovascular: Yes: WNL, Regular Rate and Rhythm Respiratory: Yes: WNL, Regular, CTA Bilaterally Gastrointestinal: Yes: Normal Bowel Sounds Genitourinary: Yes: WNL Edema: No Peripheral Pulses WNL: Yes Integumentary: Yes: WNL Neurological: Yes: Alert, Oriented, Dysarthria (improved), Facial Droop Psychiatric: Yes: WNL, Alert, Oriented Labs: CBC, BMP 12/24/16 05:35 12/24/16 05:35 INR, PTT INR 1.12 (0.82-1.09) 12/21/16 09:19 Assessment/Plan CVA,Lacunar syndrome Dysarthria,Clumsy hand syndrome LT HTN Hypercholestrolemia PLAN Continue BP medications PT D/c home continue plavix and BP meds F/u with neurology and PMD in I wk
[2016-12-24] MEDS: CLOPIDOGREL BISULFATE 75 MG TABLET (FP) PO SCH (11:41)
[2016-12-24] MEDS: METOPROLOL SUCCINATE 50 MG TAB.SR.24H (FP) PO SCH (11:41)
[2016-12-24] MEDS: ASPIRIN 81 MG CHEWABLE TABLETS PO SCH (11:41)
[2016-12-24] MEDS: ENALAPRIL MALEATE 10 MG TABLET (FP) PO SCH (11:42)
--- NOTE | 2016-12-24 12:23 | PN ---
Progress Note, RESPIRATORY THERAPY TECHNICIAN - Note Progress Note: Pt reports coughing occasionally on liquids., Selected Entries 12/23/16 12/23/16 12/23/16 10:29 14:16 18:00 Breakfast 100% Lunch 100% Supper 100% Temperature 12/24/16 12/24/16 12/24/16 02:44 05:58 10:32 Breakfast 100% Lunch Supper Temperature 98.2 F 98.3 F Reviewed rec based on MBS results with pt including: Fully upright with meals, ideally OOB Chin tuck Holding bolus in her mouth before transfer/swallow Single,careful sips Pending d/c. Advised her to contact PMD if she becomes congested.
--- NOTE | 2016-12-24 21:58 | DS ---
Physical Examination Vital Signs: Vital Signs Temperature 98.3 F 12/24/16 05:58 Pulse Rate 56 L 12/24/16 05:58 Respiratory Rate 18 12/24/16 05:58 Blood Pressure 152/56 12/24/16 05:58 O2 Sat by Pulse Oximetry (%) 97 12/24/16 09:00 Labs: CBC, BMP 12/24/16 05:35 12/24/16 05:35 Discharge Summary Reason For Visit: CVA CVA,lacunar infarct HTN Hypercholestrolemia Hospital Course: PT with h/o HTN brouht to the ER with c/o Lt facial droop and slurred speech.Labs were NL,X ray chest NL,EKG NL.Ct head negative.Pt was treated with enalapril,and toprol. Pt was monitored in ER.Pt was seen by Neurology,cardiology.MRI of brain shows nonhemmorhgic infarct in the poserior limb of Rt internal capsule. Pt was evaluated for speech and swallow .barium swollow evaluation done,and impression was risk for intermittent aspiration PT consult was done.PT was stable on the floor Pt started on ASA,crestor and plavix Pt discharged home on home medications in a stable condition and rec Outpatient PT Rec to f/u with nerology and PMD Condition: Fair - Instructions Referrals: Adam Maynard MD [Primary Care Provider] - Disposition: [facility]/HOME HEALTH CARE - Home Medications Comprehensive Discharge Medication List: Ambulatory Orders Enalapril Maleate [Vasotec -] 20 mg PO DAILY 12/06/13 Metoprolol Succinate [Toprol Xl] 50 mg PO BID 12/21/16 Aspirin [ASA -] 81 mg PO DAILY #30 tab.chew 12/24/16 Clopidogrel Bisulfate [Plavix -] 75 mg PO DAILY #30 tablet 12/24/16 Rosuvastatin [Crestor -] 10 mg PO HS #30 tablet 12/24/16
== END 2016-12-24 13:47 | disposition home health service (06) | DRG 66 ==
LOC: JER 08:45 → JERBED 10:34 → J4S 21:46
PROVIDERS: ADMIT Family Medicine; ATTEND Family Medicine
DX: I63.9 Cerebral infarction, unspecified (principal); R47.81 Slurred speech; R29.810 Facial weakness; I11.9 Hypertensive heart disease without heart failure; E78.5 Hyperlipidemia, unspecified; R29.703 NIHSS score 3
CPT/HCPCS: 36415; 70450-TC; 70551-TC; 71010-TC; 74230-TC; 80053; 81003; 81015; 82465; 82550; 82553; 82607; 83090; 83718; 83721; 84443; 84478; 84484; 85025; 85610; 86850; 86900; 86901; 92611-GN; 93005; 93010; 93306-TC; 93880-TC; 97116-GP; 97162-PG; 97163-GP; 99285-25